=== PATIENT | female | born 1970 | race African-American/Black ===

== ENCOUNTER 2021-02-24 23:08 | Emergency (ER) | payer OTHER ==
[2021-02-24 23:13] VITALS: BP 153/95; TEMP 98.9; BMI 36.6
[2021-02-24] MEDS ORDERED: ACETAMINOPHEN 1000 MG/100 ML VIAL (NON FORMULARY) IVPB ONE (23:34)
[2021-02-24] MEDS ORDERED: ACETAMINOPHEN INJECTION 100 ML IVPB ONE (23:38)
[2021-02-24 23:55] LABS: BASO % 0.9 % (0-2.0); EOS % 2.9 % (0-4.5); HEMATOCRIT 39.3 % (32.4-45.2); HEMOGLOBIN 13.2 GM/dL (10.7-15.3); LYMPH % 37.1 % (8-40); MCH 30.7 pg (25.7-33.7); MCHC 33.6 g/dl (32.0-36.0); MEAN CELL VOLUME 91.3 fl (80-96); MEAN PLT VOLUME 10.6 fl (7.5-11.1); MONO % 7.3 % (3.8-10.2); NEUT % 51.8 % (42.8-82.8); PLATELET COUNT 207 K/MM3 (134-434); RDW 13.3 % (11.6-15.6); WHITE BLOOD COUNT 9.1 K/mm3 (4.0-10.0)
[2021-02-25] LABS: EPI CELLS 10 /uL (0-25.1); HYALINE CASTS 0 /uL (0-3.1); URINE APPEARANCE CLEAR; URINE BACTERIA 221 /uL (0-1359); URINE BILIRUBIN NEGATIVE (NEGATIVE); URINE COLOR YELLOW; URINE GLUCOSE (UA) NEGATIVE (NEGATIVE); URINE KETONE NEGATIVE (NEGATIVE); URINE LEUK ESTERASE NEGATIVE (NEGATIVE); URINE NITRITE NEGATIVE (NEGATIVE); URINE PROTEIN NEGATIVE (NEGATIVE); URINE RBC 12 /uL (0-23.9); URINE UROBILINOGEN 0.2 mg/dL (0.2-1.0); URINE WBC 2 /uL (0-25.8)
[2021-02-25 00:17] LABS: BLOOD UREA NITROGEN 14.4 mg/dL (7-18); CALCIUM 9.8 mg/dL (8.5-10.1)
[2021-02-25 00:20] LABS: CREATININE 0.9 mg/dL (0.55-1.3)
[2021-02-25 00:22] LABS: BILIRUBIN,TOTAL 0.8 mg/dL (0.2-1); TOT PROT 8.8 g/dl (6.4-8.2)
[2021-02-25 01:32] VITALS: PULSE 82
== END 2021-02-25 01:32 | disposition home or self-care (01) ==
LOC: JER 23:08
PROC: 3E033NZ Introduction of Analgesics, Hypnotics, Sedatives into Peripheral Vein, Percutaneous Approach (ICD-10-PCS; principal; 2021-02-24)
DX: E86.0 Dehydration (principal); M54.9 Dorsalgia, unspecified
CPT/HCPCS: 36415; 74176-TC; 80053; 81003; 84132; 85025; 87086; 87186; 93005; 93010; 99285-25; J0131

== ENCOUNTER 2022-05-01 23:32 | Observation (INO) | payer OTHER ==
[2022-05-02] MEDS ORDERED: FAMOTIDINE 20 MG/50 ML IVPB 20 MG/50 ML MG IVPB ONE ×2 (00:25→00:32)
[2022-05-02] MEDS ORDERED: MAG HYDROX/AL HYDROX/SIMETH -MYLANTA- ORAL SUSPENSION PO ONE (00:25)
[2022-05-02] MEDS ORDERED: ACETAMINOPHEN 1000 MG/100 ML BAG IVPB ONE (00:25)
[2022-05-02 00:32] LABS: BASO % 1.1 % (0-2.0); EOS % 3.1 % (0-4.5); HEMATOCRIT 39.1 % (32.4-45.2); HEMOGLOBIN 13.4 GM/dL (10.7-15.3); MCH 30.3 pg (25.7-33.7); MCHC 34.3 g/dl (32.0-36.0); MEAN CELL VOLUME 88.2 fl (80-96); MEAN PLT VOLUME 9.9 fl (7.5-11.1); NEUT % 42.8 % (42.8-82.8); PLATELET COUNT 184 10^3/uL (134-434); RBC 4.43 M/mm3 (3.60-5.2); RDW 13.1 % (11.6-15.6); WHITE BLOOD COUNT 7.6 K/mm3 (4.0-10.0)
[2022-05-02] MEDS ORDERED: ACETAMINOPHEN INJECTION 100 ML IVPB ONE (00:32)
[2022-05-02] MEDS ORDERED: MAG HYDROX/AL HYDROX/SIMETH 30 ML UNIT-DOSE CUP ONE (00:32)
[2022-05-02 00:52] LABS: CALCIUM 9.2 mg/dL (8.5-10.1)
[2022-05-02 00:54] LABS: ALBUMIN 4.2 g/dl (3.4-5.0); BLOOD UREA NITROGEN 15.8 mg/dL (7-18)
[2022-05-02 00:56] LABS: CREATININE 0.7 mg/dL (0.55-1.3)
[2022-05-02 00:58] LABS: BILIRUBIN,TOTAL 0.6 mg/dL (0.2-1); TOT PROT 8.4 g/dl (6.4-8.2)
[2022-05-02 00:59] LABS: EPI CELLS 1 /uL (0-25.1); HYALINE CASTS 0 /uL (0-3.1); PH,URINE 7.5 (5.0-8.0); URINE APPEARANCE CLEAR; URINE BACTERIA 8 /uL (0-1359); URINE BILIRUBIN NEGATIVE (NEGATIVE); URINE COLOR YELLOW; URINE GLUCOSE (UA) NEGATIVE (NEGATIVE); URINE KETONE NEGATIVE (NEGATIVE); URINE LEUK ESTERASE NEGATIVE (NEGATIVE); URINE NITRITE NEGATIVE (NEGATIVE); URINE PROTEIN NEGATIVE (NEGATIVE); URINE RBC 1 /uL (0-23.9); URINE UROBILINOGEN 0.2 mg/dL (0.2-1.0); URINE WBC 0 /uL (0-25.8)
[2022-05-02 01:04] LABS: VENOUS BASE EXCESS 1.3 mmol/L (-2-2); VENOUS O2 SATURATION 93.2 % (70-80); VENOUS PCO2 42.7 mmHg (38-52); VENOUS PH 7.406 (7.310-7.410)
[2022-05-02] MEDS ORDERED: metFORMIN HCL 500 MG TABLET (FP) ONE (09:38)
[2022-05-02] MEDS ORDERED: ASPIRIN 81 MG CHEWABLE TABLETS ONE (09:39)
[2022-05-02] MEDS ORDERED: LISINOPRIL 5 MG TABLET ONE (09:39)
[2022-05-02] MEDS: ASPIRIN 81 MG CHEWABLE TABLETS PO SCH (09:43)
[2022-05-02] MEDS: metFORMIN HCL 500 MG TABLET (FP) PO SCH ×2 (09:43→16:55)
[2022-05-02] MEDS: LISINOPRIL 5 MG TABLET PO SCH (09:43)
[2022-05-02 15:52] VITALS: BMI 37.8
[2022-05-02] MEDS: HEPARIN NA (PORCINE) 5,000 UNITS/ML 1ML VIAL SQ SCH (21:53)
[2022-05-02] MEDS ORDERED: ATORVASTATIN CA 10 MG TABLET (FP) PO SCH (22:00)
[2022-05-03] MEDS: metFORMIN HCL 500 MG TABLET (FP) PO SCH (06:15)
[2022-05-03] MEDS: ASPIRIN 81 MG CHEWABLE TABLETS PO SCH (10:45)
[2022-05-03] MEDS: LISINOPRIL 5 MG TABLET PO SCH (10:45)
[2022-05-03] MEDS: HEPARIN NA (PORCINE) 5,000 UNITS/ML 1ML VIAL SQ SCH (10:45)
[2022-05-03] MEDS ORDERED: LISINOPRIL 10 MG TABLET PO SCH (12:00)
[2022-05-03 18:11] VITALS: BP 130/94; PULSE 94; TEMP 98.2
== END 2022-05-03 18:47 | disposition home or self-care (01) ==
LOC: JER 23:32 → JERBED 05-02 05:44 → J4W 05-02 15:11
PROVIDERS: ADMIT Specialist; ATTEND Specialist
PROC: 3E033NZ Introduction of Analgesics, Hypnotics, Sedatives into Peripheral Vein, Percutaneous Approach (ICD-10-PCS; principal; 2022-05-02)
PROC: 3E033GC Introduction of Other Therapeutic Substance into Peripheral Vein, Percutaneous Approach (ICD-10-PCS; 2022-05-02)
PROC: 3E023GC Introduction of Other Therapeutic Substance into Muscle, Percutaneous Approach (ICD-10-PCS; 2022-05-02)
DX: I10 Essential (primary) hypertension (principal); R07.9 Chest pain, unspecified; R00.2 Palpitations; E78.5 Hyperlipidemia, unspecified; E11.69 Type 2 diabetes mellitus with other specified complication; E66.8 Other obesity; Z68.37 Body mass index [BMI] 37.0-37.9, adult; R51.9 Headache, unspecified
CPT/HCPCS: 36415; 70450-TC; 71045-TC-FY; 80053; 81003; 82010; 82803; 82962; 83690; 84484; 85025; 87086; 93005; 93010; 93306-TC; 99285-25; C9803-CS; G0378; J1644; U0003; U0005

== ENCOUNTER 2023-10-23 09:38 | Emergency (ER) | payer OTHER ==
[2023-10-23 10:03] VITALS: RESP 18; BMI 38.2
[2023-10-23] MEDS ORDERED: ACETAMINOPHEN 1000 MG/100 ML BAG IVPB ONE (11:45)
[2023-10-23] MEDS ORDERED: LIDOCAINE 5% TOPICAL PATCH TP ONE (11:45)
[2023-10-23] MEDS ORDERED: METHOCARBAMOL 500 MG TABLET PO ONE (11:45)
[2023-10-23] MEDS ORDERED: LIDOCAINE 4% PATCH TP ONE ×2 (11:45→12:28)
[2023-10-23 11:48] LABS: URINE APPEARANCE CLEAR; URINE BILIRUBIN NEGATIVE (NEGATIVE); URINE COLOR YELLOW; URINE GLUCOSE (UA) NEGATIVE (NEGATIVE); URINE KETONE NEGATIVE (NEGATIVE); URINE LEUK ESTERASE NEGATIVE (NEGATIVE); URINE NITRITE NEGATIVE (NEGATIVE); URINE PROTEIN TRACE (NEGATIVE)
[2023-10-23] MEDS ORDERED: METHOCARBAMOL 500 MG TABLET ONE (12:28)
[2023-10-23] MEDS ORDERED: ACETAMINOPHEN INJECTION 100 ML IVPB ONE (12:28)
[2023-10-23 13:01] LABS: HEMATOCRIT 36.6 % (32.4-45.2); HEMOGLOBIN 12.3 GM/dL (10.7-15.3); MCH 30.8 pg (25.7-33.7); MCHC 33.7 g/dl (32.0-36.0); MEAN CELL VOLUME 91.4 fl (80-96); PLATELET COUNT 230 10^3/uL (134-434); RBC 4.01 M/mm3 (3.60-5.2); RDW 13.1 % (11.6-15.6); WHITE BLOOD COUNT 8.1 K/mm3 (4.0-10.0)
[2023-10-23 13:31] LABS: ANISOCYTOSIS 0; MACROCYTOSIS 0
[2023-10-23 13:49] LABS: CHLORIDE 104 mmol/L (98-107); SODIUM 136 mmol/L (136-145)
[2023-10-23 13:53] LABS: ALBUMIN 3.5 g/dl (3.4-5.0); BLOOD UREA NITROGEN 16.2 mg/dL (7-18); CO2 28 mmol/L (21-32); GLUCOSE,RANDOM 72 mg/dL (74-106); LIPASE 54 U/L (73-393)
[2023-10-23 13:55] LABS: CREATININE 0.8 mg/dL (0.55-1.3); SGOT/AST 70 U/L (15-37)
[2023-10-23 13:57] LABS: BILIRUBIN,TOTAL 0.5 mg/dL (0.2-1); TOT PROT 8.4 g/dl (6.4-8.2)
[2023-10-23 13:58] LABS: ALK PHOS 54 U/L (45-117)
[2023-10-23 14:01] LABS: ANION GAP 5 mmol/L (4-13); POTASSIUM 7.3 mmol/L (3.5-5.1); SGPT/ALT 31 U/L (13-61)
[2023-10-23 15:57] LABS: CHLORIDE 121 mmol/L (98-107); SODIUM 146 mmol/L (136-145)
[2023-10-23 15:59] LABS: GLUCOSE,RANDOM 75 mg/dL (74-106)
[2023-10-23 16:00] LABS: BLOOD UREA NITROGEN 11.3 mg/dL (7-18); CO2 17 mmol/L (21-32)
[2023-10-23 16:02] LABS: SGOT/AST 8 U/L (15-37); SGPT/ALT 16 U/L (13-61)
[2023-10-23 16:03] LABS: CREATININE 0.3 mg/dL (0.55-1.3)
[2023-10-23 16:04] LABS: BILIRUBIN,TOTAL 0.3 mg/dL (0.2-1)
[2023-10-23 16:05] LABS: ALK PHOS 33 U/L (45-117)
[2023-10-23 16:07] LABS: ALBUMIN 2.2 g/dl (3.4-5.0); ANION GAP 8 mmol/L (4-13); CALCIUM 5.6 mg/dL (8.5-10.1); POTASSIUM 2.3 mmol/L (3.5-5.1); TOT PROT 4.6 g/dl (6.4-8.2)
[2023-10-23 18:31] LABS: POTASSIUM 3.6 mmol/L (3.5-5.1)
[2023-10-23 18:36] LABS: BLOOD UREA NITROGEN 16.6 mg/dL (7-18)
[2023-10-23 18:39] LABS: CREATININE 0.7 mg/dL (0.55-1.3)
[2023-10-23 18:40] LABS: BILIRUBIN,TOTAL 0.6 mg/dL (0.2-1)
[2023-10-23 18:49] LABS: ALBUMIN 3.5 g/dl (3.4-5.0); CALCIUM 8.8 mg/dL (8.5-10.1); TOT PROT 7.6 g/dl (6.4-8.2)
[2023-10-23 18:58] VITALS: BP 152/75; PULSE 85; TEMP 98.1
[2023-10-23] MEDS ORDERED: LIDOCAINE PATCH REMOVAL MC SCH (22:00)
== END 2023-10-23 19:02 | disposition home or self-care (01) ==
LOC: JER 09:38
PROC: 3E033NZ Introduction of Analgesics, Hypnotics, Sedatives into Peripheral Vein, Percutaneous Approach (ICD-10-PCS; principal; 2023-10-23)
DX: M54.50 Low back pain, unspecified (principal); R30.0 Dysuria; R35.0 Frequency of micturition; Z20.822 Contact with and (suspected) exposure to COVID-19
CPT/HCPCS: 0241U-QW; 36415; 72170-TC-FY; 80053; 81003; 83690; 85025; 87086; 99284-25